=== PATIENT | male | born 1960 | race Caucasian/White ===

== ENCOUNTER 2017-07-20 18:30 | Emergency (ER) | payer OTHER ==
--- NOTE | 2017-07-20 18:36 | ED Physician Documentation ---
General Adult - HISTORIAN Historian: patient - HPI Stated Complaint: nausea vomiting and dizziness - rash Chief Complaint: Dizziness Onset: hours (2) Timing: still present Severity: moderate Further Comments: yes (He reports no illness prior to feeling dizzy and then became nauseated and has had 3 known episodes of vomiting. He did have some diaphroesis so the facility did a work up on chest pain. He denies any chest pain at this time. He denies any head injury. The facility did note a rash on his chest prior to calling the ambulance. He states the rash is ithcing (denies any new exposures).) Last known Well Code/Unknown Code: Unknown - ROS CONST: denies: fever, recent illness EYES/ENT: none CVS/RESP: denies: chest pain, shortness of breath, cough GI/: vomiting, nausea. denies: diarrhea MS/SKIN/LYMPH: rash NEURO/PSYCH: headache, dizziness - PAST HX Past History: other (Hyperlipidemia and HTN DM) Surgeries/Procedures: other Immunizations: UTD Allergies/Adverse Reactions: Allergies Allergy/AdvReac Type Severity Reaction Status Date / Time No Known Allergies Allergy Verified 07/20/17 19:30 Home Medications: Ambulatory Orders Medication Instructions Recorded Aspirin EC [Ecotrin] 81 mg PO D 07/20/17 Atorvastatin Calcium [Atorvastatin 20 mg PO D 07/20/17 Calcium] Insulin NPH Hum/Reg Insulin Hm 1 appl SQ DIRECTED 07/20/17 [Relion Novolin 70-30 Vial] Insulin NPH [Novolin N] 8 units SQ HS 07/20/17 Insulin NPH [Novolin N] 16 units SQ AM 07/20/17 Metformin HCl [Metformin HCl ER] 1,000 mg PO BID 07/20/17 Pyridoxine HCl (Vitamin B6) 50 mg PO D 07/20/17 [Vitamin B-6] - SOCIAL HX Smoking History: cigarettes Alcohol Use: none Drug Use: none - FAMILY HX Family History: No - REVIEWED ASSESSMENTS Nursing Assessment Reviewed: Yes Vitals Reviewed: Yes Progress - Progress Progress: 1830: per facility report he had negative troponin DG 1905: continues to have dizziness but no further nausea DG 1999: Denies nausea. States dizziness is improved. Rash continues although states itching is decreased DG 2043: rash is improved. He reports he is feeling better. He is ready to return to the facility - results discussed DG General Adult Physical Exam - PHYSICAL EXAM GENERAL APPEARANCE: no distress EENT: eye inspection normal NECK: normal inspection RESPIRATORY: no resp distress, chest non-tender, breath sounds normal CVS: reg rate & rhythm, heart sounds normal, no murmur ABDOMEN: soft, no distension, non-tender, abnormal bowel sounds, other ( hyperactive bowel sounds ) BACK: normal inspection SKIN: other (fine red rash on mid abdomen raised ) EXTREMITIES: non-tender, normal range of motion, no evidence of injury, no edema NEURO: oriented X3, CN's nml as tested, motor nml, sensation nml, mood/affect nml, cognition normal Discharge Clincal Impression: Dizziness, Rash Nausea & vomiting Qualifiers: Vomiting type: unspecified Vomiting Intractability: unspecified Qualified Code( s): R11.2 - Nausea with vomiting, unspecified Referrals: uT Benavidez III, MD [Primary Care Provider] - 2 Days Additional Instructions: 1. Benadryl 25 mg - Take 1 by mouth every 8 hours as needed for rash - itching 2. Zofran 4 mg - Take 1 by mouth every 8 hours as needed for nausea 3. Increase fluids 4. No outside activities x 2 days 5. Return to PCP in 2-4 days if no improvement 6. Return to ER For any concerns. Increasing dizziness, N/V that is not controlled. Increase in rash or other concerns Condition: Stable Disposition: 01 HOME, SELF-CARE Decision to Admit: NO Date of Decison to Admit: 07/20/17 Decision Time: 20:47
[2017-07-20] MEDS ORDERED: ONDANSETRON HCL/PF 4 MG/ 2ML VIAL IVP ONE (18:41)
[2017-07-20] MEDS ORDERED: methylPREDNISolone SOD SUCC 125 MG/2 ML VIAL IVP ONE (18:53)
[2017-07-20] MEDS ORDERED: 0.9 % SODIUM CHLORIDE 1,000 ML IV SCH (19:00)
[2017-07-20 19:11] LABS: BASOPHILS % 0.5 (0.0-1.5); EOSINOPHILS % 1.6 % (0.0-6.8); MEAN CORPUSCULAR VOLUME 88.3 fl (80.0-100.0); NEUTROPHILS # 5.1 # k/uL (1.4-7.7)
[2017-07-20 19:23] LABS: eGFR (African) > 60; eGFR (Non-African) > 60
[2017-07-20] MEDS ORDERED: 0.9 % SODIUM CHLORIDE 1,000 ML IV ONE ×2 (19:52)
[2017-07-20] MEDS ORDERED: diphenhydrAMINE HCL 25 MG TABLET PO ONE (20:00)
[2017-07-20 22:31] VITALS: BP 135/76
== END 2017-07-20 21:08 | disposition home or self-care (01) ==
LOC: ED 18:30
DX: R21 Rash and other nonspecific skin eruption (principal); R42 Dizziness and giddiness; R11.2 Nausea with vomiting, unspecified
CPT/HCPCS: 80053; 84484; 85025; 93005; J2405; J2930; J7030; Q0163; 96365; 96366; 96375; 99284